=== PATIENT | male | born 1960 | race Caucasian/White ===

== ENCOUNTER 2022-10-10 16:45 | Outpatient (CLI) | payer BC, OTHER ==
[2022-10-10 21:09] LABS: CALCIUM 10.1 mg/dL (8.5-10.3); CREATININE 0.8 mg/dL (0.6-1.2); POTASSIUM 4.3 mmol/L (3.5-5.0)
[2022-10-10 21:13] LABS: BASOPHILS # (AUTO) 0.1 10^3/uL (0.0-0.1); BASOPHILS % (AUTO) 0.8 %; EOSINOPHILS # (AUTO) 0.3 10^3/uL (0.0-0.7); EOSINOPHILS % (AUTO) 3.5 %; HCT - HEMATOCRIT 50.1 % (42.0-52.0); HGB - HEMOGLOBIN 16.3 g/dL (14.0-18.0); LYMPHOCYTES # (AUTO) 2.7 10^3/uL (1.5-3.5); LYMPHOCYTES % (AUTO) 35.9 %; MEAN CORPUSCULAR HGB CONC 32.5 g/dL (32.0-36.0); MEAN CORPUSCULAR VOLUME 98.2 fL (80.0-94.0); MEAN PLATELET VOLUME 11.7 fL (7.4-11.4); MONOCYTES # (AUTO) 0.6 10^3/uL (0.0-1.0); MONOCYTES % (AUTO) 7.9 %; NEUTROPHILS # (AUTO) 3.8 10^3/uL (1.5-6.6); NEUTROPHILS % (AUTO) 51.5 %; PLT - PLATELET COUNT 168 10^3/uL (130-450); RED CELL DISTRIBUTION WIDTH 14.5 % (12.0-15.0); WHITE BLOOD COUNT 7.4 x10^3/uL (4.8-10.8)
[2022-10-10 21:29] LABS: THYROID STIMULATING HORMONE 1.46 uIU/mL (0.34-5.60)
[2022-10-10 21:31] LABS: FREE T4 (FREE THYROXINE) 1.05 ng/dL (0.58-1.64)
[2022-10-10 21:35] LABS: PROLACTIN 15.15 ng/mL
[2022-10-12 18:08] LABS: FREE TESTOSTERONE(DIRECT) 5.5 pg/mL (6.6-18.1)
== END 2022-10-10 16:46 | disposition home or self-care (01) ==
LOC: LAB.N 16:45
PROVIDERS: ATTEND Internal Medicine Endocrinology, Diabetes & Metabolism
DX: E21.3 Hyperparathyroidism, unspecified (principal); D49.7 Neoplasm of unspecified behavior of endocrine glands and other parts of nervous system; E22.0 Acromegaly and pituitary gigantism
CPT/HCPCS: 36415; 80048; 84146; 84305; 84402; 84403; 84439; 84443; 85025